=== PATIENT | female | born 1965 | race Two or more races ===

== ENCOUNTER 2022-06-19 18:27 | Inpatient (IN) | payer OTHER ==
[2022-06-19] MEDS ORDERED: ACETAMINOPHEN 1000 MG/100 ML BAG IVPB ONE (19:35)
[2022-06-19] MEDS ORDERED: ONDANSETRON 4 MG/2 ML VIAL IVPUSH ONE (19:37)
[2022-06-19] MEDS ORDERED: ACETAMINOPHEN INJECTION 100 ML IVPB ONE (20:19)
[2022-06-19] MEDS ORDERED: ONDANSETRON 4 MG/2 ML VIAL ONE (20:19)
[2022-06-19 21:49] LABS: EOS % 2.2 % (0-4.5); HEMATOCRIT 32.4 % (32.4-45.2); HEMOGLOBIN 10.9 GM/dL (10.7-15.3); LYMPH % 19.3 % (8-40); MCH 31.6 pg (25.7-33.7); MCHC 33.5 g/dl (32.0-36.0); MEAN CELL VOLUME 94.3 fl (80-96); MEAN PLT VOLUME 8.6 fl (7.5-11.1); MONO % 7.6 % (3.8-10.2); NEUT % 69.9 % (42.8-82.8); PLATELET COUNT 170 10^3/uL (134-434); RBC 3.44 M/mm3 (3.60-5.2); WHITE BLOOD COUNT 9.7 K/mm3 (4.0-10.0)
[2022-06-19 22:07] LABS: CHLORIDE 109 mmol/L (98-107); POTASSIUM 5.2 mmol/L (3.5-5.1); SODIUM 141 mmol/L (136-145)
[2022-06-19 22:09] LABS: GLUCOSE,RANDOM 83 mg/dL (74-106); LIPASE 1058 U/L (73-393)
[2022-06-19 22:10] LABS: ALBUMIN 3.8 g/dl (3.4-5.0); ANION GAP 9 MMOL/L (8-16); BLOOD UREA NITROGEN 64.9 mg/dL (7-18); CO2 22 mmol/L (21-32); MAGNESIUM 2.9 mg/dL (1.8-2.4)
[2022-06-19 22:12] LABS: PHOSPHOROUS 5.3 mg/dL (2.5-4.9); SGOT/AST 10 U/L (15-37)
[2022-06-19 22:13] LABS: SGPT/ALT 18 U/L (13-61)
[2022-06-19 22:14] LABS: BILIRUBIN,TOTAL 0.5 mg/dL (0.2-1); TOT PROT 6.4 g/dl (6.4-8.2)
[2022-06-19 22:15] LABS: ALK PHOS 62 U/L (45-117)
[2022-06-19 22:23] LABS: CREATININE 8.4 mg/dL (0.55-1.3)
[2022-06-19] MEDS ORDERED: ALBUTEROL SO4 2.5/IPRATROPIUM 0.5 INH SOL 3 ML VIAL.NEB. NEB ONE ×2 (23:49→23:59)
[2022-06-19] MEDS: ALBUTEROL SO4 2.5/IPRATROPIUM 0.5 INH SOL 3 ML VIAL.NEB. NEB SCH (23:51)
[2022-06-20] MEDS: ALBUTEROL SO4 2.5/IPRATROPIUM 0.5 INH SOL 3 ML VIAL.NEB. NEB SCH ×3 (01:00→03:36)
[2022-06-20] MEDS ORDERED: ALBUTEROL SO4 HFA INHALER IH PRN (02:38)
[2022-06-20] MEDS ORDERED: SODIUM ZIRCONIUM CYCLOSILICATE (LOKELMA) 10 GM PACKET PO ONE (03:57)
[2022-06-20] MEDS ORDERED: BACLOFEN 10 MG TABLET (FP) ONE (04:00)
[2022-06-20] MEDS ORDERED: SODIUM ZIRCONIUM CYCLOSILICATE (LOKELMA) 5 GM PACKET ONE (04:00)
[2022-06-20] MEDS: BACLOFEN 10 MG TABLET (FP) PO PRN ×2 (04:07→20:49)
[2022-06-20 04:15] LABS: CHLORIDE 111 mmol/L (98-107); POTASSIUM 5.1 mmol/L (3.5-5.1); SODIUM 143 mmol/L (136-145)
[2022-06-20 04:16] LABS: CALCIUM 8.5 mg/dL (8.5-10.1)
[2022-06-20 04:17] LABS: ANION GAP 9 MMOL/L (8-16); CO2 22 mmol/L (21-32); MAGNESIUM 2.9 mg/dL (1.8-2.4)
[2022-06-20 04:18] LABS: ALBUMIN 3.5 g/dl (3.4-5.0); BLOOD UREA NITROGEN 68.4 mg/dL (7-18); GLUCOSE,RANDOM 89 mg/dL (74-106)
[2022-06-20 04:20] LABS: SGOT/AST 9 U/L (15-37); SGPT/ALT 17 U/L (13-61)
[2022-06-20 04:21] LABS: CHOLESTEROL 194 mg/dL (50-200)
[2022-06-20 04:22] LABS: TOT PROT 6.1 g/dl (6.4-8.2)
[2022-06-20 04:23] LABS: BILIRUBIN,TOTAL 0.5 mg/dL (0.2-1); HDL CHOLESTEROL 76 mg/dL (40-60); LDL CHOLESTEROL (ONLY SJRH) 95 mg/dL (5-100)
[2022-06-20 04:24] LABS: ALK PHOS 57 U/L (45-117)
[2022-06-20 05:02] LABS: CREATININE 8.8 mg/dL (0.55-1.3)
[2022-06-20] MEDS: traMADol HCL 50 MG TABLET PO SCH ×2 (05:17→10:01)
[2022-06-20] MEDS ORDERED: LACTATED RINGERS SOLUTION 1000 ML INFUS.BAG IV ONE (06:02)
[2022-06-20] MEDS ORDERED: SODIUM CHLORIDE 0.9% 500 ML INFUS.BAG IV ONE (06:12)
[2022-06-20] MEDS: HEPARIN NA (PORCINE) 5,000 UNITS/ML 1ML VIAL SQ SCH ×3 (06:27→21:37)
[2022-06-20 06:41] LABS: BASO % 0.7 % (0-2.0); HEMATOCRIT 30.8 % (32.4-45.2); HEMOGLOBIN 10.6 GM/dL (10.7-15.3); LYMPH % 17.7 % (8-40); MCH 32.5 pg (25.7-33.7); MCHC 34.3 g/dl (32.0-36.0); MEAN CELL VOLUME 94.6 fl (80-96); MEAN PLT VOLUME 9.2 fl (7.5-11.1); MONO % 8.3 % (3.8-10.2); NEUT % 70.3 % (42.8-82.8); PLATELET COUNT 146 10^3/uL (134-434); RBC 3.26 M/mm3 (3.60-5.2); RDW 17.3 % (11.6-15.6); WHITE BLOOD COUNT 6.6 K/mm3 (4.0-10.0)
[2022-06-20 06:53] LABS: INR 0.99 (0.83-1.09); PROTHROMBIN TIME (PATIENT) 11.5 SEC (9.7-13.0)
[2022-06-20] MEDS ORDERED: SODIUM CHLORIDE 1,000 ML IV SCH (07:15)
[2022-06-20] MEDS ORDERED: PANTOPRAZOLE 40 MG TABLET PO ONE (08:31)
[2022-06-20] MEDS ORDERED: traMADol HCL 50 MG TABLET ONE (08:31)
[2022-06-20] MEDS ORDERED: FERROUS SO4 325 MG TABLET (FP) ONE (08:32)
[2022-06-20] MEDS ORDERED: HEPARIN NA (PORCINE) 5,000 UNITS/ML 1ML VIAL ONE (08:32)
[2022-06-20] MEDS ORDERED: MAGNESIUM OXIDE 400 MG TABLET (FP) ONE (08:32)
[2022-06-20] MEDS: PANTOPRAZOLE 40 MG TABLET PO SCH (09:31)
[2022-06-20] MEDS: SEVELAMER CARBONATE 800 MG TAB (FP) PO SCH ×3 (09:31→17:26)
[2022-06-20] MEDS ORDERED: SODIUM ZIRCONIUM CYCLOSILICATE (LOKELMA) 10 GM PACKET PO SCH (10:00)
[2022-06-20] MEDS ORDERED: SODIUM CHLORIDE 250 ML IV PRN (12:00)
[2022-06-20] MEDS ORDERED: EPOETIN ALFA-EPBX 3,000 UNIT/ML VIAL IVPUSH ONE (12:00)
[2022-06-20 15:10] LABS: LIPASE 792 U/L (73-393)
[2022-06-20 15:11] LABS: AMYLASE 194 U/L (25-115)
[2022-06-20] MEDS: LACTATED RINGERS SOLUTION 1,000 ML/1,000 ML INFUS.BAG IV SCH (17:27)
[2022-06-20] MEDS ORDERED: MECLIZINE HCL 12.5 MG TABLET PO ONE (21:09)
[2022-06-21] MEDS ORDERED: ONDANSETRON 4 MG/2 ML VIAL IVPUSH ONE (01:36)
[2022-06-21] MEDS: HEPARIN NA (PORCINE) 5,000 UNITS/ML 1ML VIAL SQ SCH ×3 (06:52→21:43)
[2022-06-21] MEDS ORDERED: ONDANSETRON 4 MG/2 ML VIAL IVPB PRN (07:11)
[2022-06-21 08:17] LABS: BASO % 0.8 % (0-2.0); EOS % 1.1 % (0-4.5); HEMOGLOBIN 10.1 GM/dL (10.7-15.3); MCHC 33.6 g/dl (32.0-36.0); MEAN CELL VOLUME 95.3 fl (80-96); MEAN PLT VOLUME 9.4 fl (7.5-11.1); MONO % 7.5 % (3.8-10.2); NEUT % 75.6 % (42.8-82.8); PLATELET COUNT 124 10^3/uL (134-434); RBC 3.15 M/mm3 (3.60-5.2); WHITE BLOOD COUNT 5.6 K/mm3 (4.0-10.0)
[2022-06-21] MEDS: SEVELAMER CARBONATE 800 MG TAB (FP) PO SCH ×3 (08:24→18:13)
[2022-06-21 08:56] LABS: POTASSIUM 4.3 mmol/L (3.5-5.1)
[2022-06-21 09:00] LABS: ALBUMIN 3.4 g/dl (3.4-5.0)
[2022-06-21 09:02] LABS: CREATININE 5.2 mg/dL (0.55-1.3)
[2022-06-21 09:04] LABS: BILIRUBIN,TOTAL 0.8 mg/dL (0.2-1)
[2022-06-21] MEDS: traMADol HCL 50 MG TABLET PO SCH (09:05)
[2022-06-21] MEDS: PANTOPRAZOLE 40 MG TABLET PO SCH (09:07)
[2022-06-21 09:10] LABS: BLOOD UREA NITROGEN 27.1 mg/dL (7-18)
[2022-06-21] MEDS ORDERED: LACTATED RINGERS SOLUTION 1,000 ML/1,000 ML INFUS.BAG IV SCH (18:11)
[2022-06-21] MEDS: LACTATED RINGERS SOLUTION 1,000 ML/1,000 ML INFUS.BAG IV SCH (18:12)
[2022-06-21] MEDS: BACLOFEN 10 MG TABLET (FP) PO PRN (23:54)
[2022-06-22] MEDS ORDERED: ACETAMINOPHEN 1000 MG/100 ML BAG IVPB ONE (02:10)
[2022-06-22] MEDS ORDERED: PREGABALIN 25 MG CAPSULE PO ONE (03:23)
[2022-06-22] MEDS: HEPARIN NA (PORCINE) 5,000 UNITS/ML 1ML VIAL SQ SCH ×3 (05:55→21:56)
[2022-06-22] MEDS ORDERED: SODIUM CHLORIDE 250 ML IV PRN (07:12)
[2022-06-22] MEDS: SEVELAMER CARBONATE 800 MG TAB (FP) PO SCH ×3 (09:24→17:24)
[2022-06-22] MEDS: PANTOPRAZOLE 40 MG TABLET PO SCH (09:24)
[2022-06-22] MEDS: traMADol HCL 50 MG TABLET PO SCH (09:25)
[2022-06-22] MEDS ORDERED: EPOETIN ALFA-EPBX 4,000 UNIT/ML VIAL SQ ONE (09:30)
[2022-06-22] MEDS: ALBUTEROL SO4 HFA INHALER IH PRN (09:35)
[2022-06-22 10:09] LABS: CALCIUM 9.1 mg/dL (8.5-10.1)
[2022-06-22 10:10] LABS: ALBUMIN 3.7 g/dl (3.4-5.0); BLOOD UREA NITROGEN 31.5 mg/dL (7-18); MAGNESIUM 2.4 mg/dL (1.8-2.4)
[2022-06-22 10:13] LABS: CREATININE 6.4 mg/dL (0.55-1.3); PHOSPHOROUS 4.5 mg/dL (2.5-4.9)
[2022-06-22 10:14] LABS: TOT PROT 6.4 g/dl (6.4-8.2)
[2022-06-22 10:15] LABS: BILIRUBIN,TOTAL 0.6 mg/dL (0.2-1)
[2022-06-22 10:56] LABS: BASO % 0.9 % (0-2.0); EOS % 1.5 % (0-4.5); HEMATOCRIT 31.2 % (32.4-45.2); HEMOGLOBIN 10.6 GM/dL (10.7-15.3); LYMPH % 17.2 % (8-40); MCH 32.2 pg (25.7-33.7); MCHC 33.9 g/dl (32.0-36.0); MEAN CELL VOLUME 94.9 fl (80-96); MEAN PLT VOLUME 9.1 fl (7.5-11.1); MONO % 7.5 % (3.8-10.2); NEUT % 72.9 % (42.8-82.8); PLATELET COUNT 139 10^3/uL (134-434); RBC 3.29 M/mm3 (3.60-5.2); RDW 16.4 % (11.6-15.6); WHITE BLOOD COUNT 5.5 K/mm3 (4.0-10.0)
[2022-06-22] MEDS: LACTATED RINGERS SOLUTION 1,000 ML/1,000 ML INFUS.BAG IV SCH (17:55)
[2022-06-22] MEDS: ONDANSETRON 4 MG/2 ML VIAL IVPB PRN (18:02)
[2022-06-22] MEDS: ACETAMINOPHEN 1000 MG/100 ML BAG IVPB PRN (23:50)
[2022-06-22] MEDS: MELATONIN 5 MG TABLETS PO PRN (23:53)
[2022-06-23] MEDS: LACTATED RINGERS SOLUTION 1,000 ML/1,000 ML INFUS.BAG IV SCH (05:45)
[2022-06-23] MEDS: HEPARIN NA (PORCINE) 5,000 UNITS/ML 1ML VIAL SQ SCH ×3 (05:45→22:45)
[2022-06-23] MEDS: SEVELAMER CARBONATE 800 MG TAB (FP) PO SCH ×3 (08:37→17:26)
[2022-06-23] MEDS: ACETAMINOPHEN 1000 MG/100 ML BAG IVPB PRN (08:37)
[2022-06-23] MEDS: PANTOPRAZOLE 40 MG TABLET PO SCH (09:53)
[2022-06-23] MEDS: traMADol HCL 50 MG TABLET PO SCH (09:53)
[2022-06-23] MEDS ORDERED: LACTATED RINGERS SOLUTION 1,000 ML/1,000 ML INFUS.BAG IV SCH (13:40)
[2022-06-24] MEDS: HEPARIN NA (PORCINE) 5,000 UNITS/ML 1ML VIAL SQ SCH ×3 (06:12→22:05)
[2022-06-24] MEDS: SEVELAMER CARBONATE 800 MG TAB (FP) PO SCH ×3 (09:57→17:55)
[2022-06-24] MEDS: traMADol HCL 50 MG TABLET PO SCH (09:57)
[2022-06-24] MEDS: PANTOPRAZOLE 40 MG TABLET PO SCH (09:57)
[2022-06-24 11:15] LABS: BASO % 1.4 % (0-2.0); EOS % 3.3 % (0-4.5); HEMATOCRIT 32.1 % (32.4-45.2); HEMOGLOBIN 10.7 GM/dL (10.7-15.3); LYMPH % 14.9 % (8-40); MCH 31.9 pg (25.7-33.7); MCHC 33.5 g/dl (32.0-36.0); MEAN CELL VOLUME 95.4 fl (80-96); MONO % 6.8 % (3.8-10.2); NEUT % 73.6 % (42.8-82.8); PLATELET COUNT 128 10^3/uL (134-434); RBC 3.36 M/mm3 (3.60-5.2); RDW 16.5 % (11.6-15.6); WHITE BLOOD COUNT 4.8 K/mm3 (4.0-10.0)
[2022-06-24 11:41] LABS: POTASSIUM 4.4 mmol/L (3.5-5.1)
[2022-06-24 11:47] LABS: ALBUMIN 3.4 g/dl (3.4-5.0); CALCIUM 9.3 mg/dL (8.5-10.1)
[2022-06-24 11:48] LABS: BLOOD UREA NITROGEN 19.1 mg/dL (7-18)
[2022-06-24 11:50] LABS: CREATININE 5.6 mg/dL (0.55-1.3); PHOSPHOROUS 3.6 mg/dL (2.5-4.9)
[2022-06-24 11:52] LABS: BILIRUBIN,TOTAL 0.5 mg/dL (0.2-1)
[2022-06-24] MEDS: ALBUTEROL SO4 HFA INHALER IH PRN (22:00)
[2022-06-24] MEDS: MELATONIN 5 MG TABLETS PO PRN (22:05)
[2022-06-24] MEDS: ONDANSETRON 4 MG/2 ML VIAL IVPB PRN (22:05)
[2022-06-25] MEDS ORDERED: ONDANSETRON *ODT* 4 MG TABLET SL ONE (03:56)
[2022-06-25] MEDS ORDERED: ONDANSETRON *ODT* 4 MG TABLET SL PRN (04:01)
[2022-06-25] MEDS: HEPARIN NA (PORCINE) 5,000 UNITS/ML 1ML VIAL SQ SCH ×3 (06:42→22:15)
[2022-06-25] MEDS ORDERED: SODIUM CHLORIDE 250 ML IV PRN (08:20)
[2022-06-25] MEDS ORDERED: EPOETIN ALFA-EPBX 4,000 UNIT/ML VIAL SQ ONE (08:20)
[2022-06-25] MEDS: SEVELAMER CARBONATE 800 MG TAB (FP) PO SCH ×3 (08:24→17:26)
[2022-06-25 09:27] LABS: BASO % 1.1 % (0-2.0); EOS % 5.8 % (0-4.5); HEMATOCRIT 28.9 % (32.4-45.2); HEMOGLOBIN 9.8 GM/dL (10.7-15.3); LYMPH % 20.5 % (8-40); MCHC 33.9 g/dl (32.0-36.0); MEAN CELL VOLUME 94.6 fl (80-96); MEAN PLT VOLUME 8.7 fl (7.5-11.1); MONO % 7.9 % (3.8-10.2); NEUT % 64.7 % (42.8-82.8); PLATELET COUNT 118 10^3/uL (134-434); RBC 3.05 M/mm3 (3.60-5.2); WHITE BLOOD COUNT 4.2 K/mm3 (4.0-10.0)
[2022-06-25 11:24] LABS: POTASSIUM 4.5 mmol/L (3.5-5.1)
[2022-06-25 11:48] LABS: ALBUMIN 3.1 g/dl (3.4-5.0); CALCIUM 8.8 mg/dL (8.5-10.1)
[2022-06-25 11:52] LABS: PHOSPHOROUS 3.7 mg/dL (2.5-4.9)
[2022-06-25 11:53] LABS: BILIRUBIN,TOTAL 0.4 mg/dL (0.2-1); TOT PROT 5.4 g/dl (6.4-8.2)
[2022-06-25] MEDS: traMADol HCL 50 MG TABLET PO SCH (13:01)
[2022-06-25] MEDS: PANTOPRAZOLE 40 MG TABLET PO SCH (13:01)
[2022-06-25 15:27] VITALS: BMI 21.7
[2022-06-25] MEDS ORDERED: ACETAMINOPHEN 325 MG TABLET (FP) PO ONE (18:51)
[2022-06-26] MEDS: PANTOPRAZOLE 40 MG TABLET PO SCH (09:31)
[2022-06-26] MEDS: traMADol HCL 50 MG TABLET PO SCH (09:31)
[2022-06-26] MEDS: SEVELAMER CARBONATE 800 MG TAB (FP) PO SCH ×3 (09:34→17:31)
[2022-06-26 10:44] LABS: BASO % 1.1 % (0-2.0); EOS % 3.6 % (0-4.5); HEMATOCRIT 34.6 % (32.4-45.2); HEMOGLOBIN 11.4 GM/dL (10.7-15.3); LYMPH % 19.8 % (8-40); MCH 31.6 pg (25.7-33.7); MEAN CELL VOLUME 95.7 fl (80-96); MEAN PLT VOLUME 8.3 fl (7.5-11.1); MONO % 8.7 % (3.8-10.2); NEUT % 66.8 % (42.8-82.8); PLATELET COUNT 137 10^3/uL (134-434); RBC 3.62 M/mm3 (3.60-5.2); RDW 16.2 % (11.6-15.6); WHITE BLOOD COUNT 4.6 K/mm3 (4.0-10.0)
[2022-06-26 10:49] LABS: PROTHROMBIN TIME (PATIENT) 11.6 SEC (9.7-13.0)
[2022-06-26 11:06] LABS: POTASSIUM 4.3 mmol/L (3.5-5.1)
[2022-06-26 11:11] LABS: BLOOD UREA NITROGEN 14.4 mg/dL (7-18); CALCIUM 9.6 mg/dL (8.5-10.1)
[2022-06-26 11:13] LABS: ALBUMIN 3.5 g/dl (3.4-5.0)
[2022-06-26 11:16] LABS: BILIRUBIN,TOTAL 0.6 mg/dL (0.2-1); CREATININE 4.9 mg/dL (0.55-1.3); TOT PROT 6.5 g/dl (6.4-8.2)
[2022-06-26] MEDS: BACLOFEN 10 MG TABLET (FP) PO PRN (22:35)
[2022-06-27] MEDS: SEVELAMER CARBONATE 800 MG TAB (FP) PO SCH ×2 (08:01→13:17)
[2022-06-27] MEDS: traMADol HCL 50 MG TABLET PO SCH (09:54)
[2022-06-27] MEDS: PANTOPRAZOLE 40 MG TABLET PO SCH (09:54)
[2022-06-27] MEDS ORDERED: SODIUM CHLORIDE 250 ML IV PRN (10:14)
[2022-06-27] MEDS ORDERED: EPOETIN ALFA-EPBX 4,000 UNIT/ML VIAL IVPUSH ONE (10:15)
[2022-06-27] MEDS ORDERED: EPOETIN ALFA-EPBX 4,000 UNIT/ML VIAL SQ ONE (10:15)
[2022-06-27 15:39] VITALS: BP 132/67; PULSE 87; RESP 16; TEMP 99.5
== END 2022-06-27 16:17 | disposition home or self-care (01) | DRG 438 ==
LOC: JER 18:27 → JERBED 23:04 → J4W 06-20 16:42 → J5S 06-21 17:48
PROVIDERS: ADMIT Student in an Organized Health Care Education/Training Program
PROC: 0DB98ZX Excision of Duodenum, Via Natural or Artificial Opening Endoscopic, Diagnostic (ICD-10-PCS; 2022-06-26)
PROC: 0DB68ZX Excision of Stomach, Via Natural or Artificial Opening Endoscopic, Diagnostic (ICD-10-PCS; principal; 2022-06-26 11:45)
PROC: 5A1D70Z Performance of Urinary Filtration, Intermittent, Less than 6 Hours Per Day (ICD-10-PCS; 2022-06-27)
DX: K85.10 Biliary acute pancreatitis without necrosis or infection (principal); N18.6 End stage renal disease; R11.2 Nausea with vomiting, unspecified; R10.9 Unspecified abdominal pain; J45.909 Unspecified asthma, uncomplicated; Z99.2 Dependence on renal dialysis; K29.70 Gastritis, unspecified, without bleeding
CPT/HCPCS: 0241U-QW; 36415; 74176-TC; 74178-TC; 74181-TC; 76705-TC; 80053; 80061; 82150; 82728; 82787; 83036; 83540; 83550; 83605; 83690; 83735; 84100; 85025; 85610; 85730; 86140; 86803; 87045; 87046; 87205; 87324; 87340; 87449; 88305-TC; 93005; 93010; 93306-TC; 93970-TC; 93990-TC; 99285-25; J0475; J1644; Q5106; Q9967

== ENCOUNTER 2022-06-30 03:01 | Emergency (ER) | payer OTHER ==
[2022-06-30 03:13] VITALS: TEMP 97.8; BMI 20.5
[2022-06-30 03:26] VITALS: RESP 10
[2022-06-30 04:08] LABS: BASO % 0.9 % (0-2.0); EOS % 3.3 % (0-4.5); HEMATOCRIT 31.9 % (32.4-45.2); LYMPH % 17.5 % (8-40); MCH 32.7 pg (25.7-33.7); MCHC 34.4 g/dl (32.0-36.0); MEAN CELL VOLUME 95.1 fl (80-96); MEAN PLT VOLUME 9.2 fl (7.5-11.1); MONO % 8.5 % (3.8-10.2); NEUT % 69.8 % (42.8-82.8); PLATELET COUNT 122 10^3/uL (134-434); RBC 3.36 M/mm3 (3.60-5.2); RDW 16.2 % (11.6-15.6); WHITE BLOOD COUNT 5.1 K/mm3 (4.0-10.0)
[2022-06-30 04:25] LABS: CHLORIDE 103 mmol/L (98-107); SODIUM 141 mmol/L (136-145)
[2022-06-30 04:27] LABS: ALBUMIN 3.7 g/dl (3.4-5.0); ANION GAP 9 MMOL/L (8-16); CALCIUM 9.5 mg/dL (8.5-10.1); CO2 29 mmol/L (21-32); GLUCOSE,RANDOM 112 mg/dL (74-106); LIPASE 298 U/L (73-393); MAGNESIUM 2.7 mg/dL (1.8-2.4)
[2022-06-30 04:28] LABS: BLOOD UREA NITROGEN 33.4 mg/dL (7-18)
[2022-06-30 04:30] LABS: SGOT/AST 30 U/L (15-37); SGPT/ALT 54 U/L (13-61)
[2022-06-30 04:32] LABS: BILIRUBIN,TOTAL 0.5 mg/dL (0.2-1); TOT PROT 6.5 g/dl (6.4-8.2)
[2022-06-30 04:33] LABS: ALK PHOS 68 U/L (45-117)
[2022-06-30 04:34] LABS: CREATININE 8.2 mg/dL (0.55-1.3)
[2022-06-30 04:44] VITALS: BP 124/52; PULSE 64
[2022-06-30] MEDS ORDERED: ACETAMINOPHEN 325 MG TABLET (FP) PO ONE (06:03)
== END 2022-06-30 08:27 | disposition home or self-care (01) ==
LOC: JER 03:01
DX: R11.10 Vomiting, unspecified (principal); M79.606 Pain in leg, unspecified
CPT/HCPCS: 36415; 80053; 83690; 83735; 85025; 93005; 93010; 99284-25

== ENCOUNTER 2022-07-17 14:59 | Observation (INO) | payer OTHER ==
[2022-07-17 15:17] VITALS: BMI 20.1
[2022-07-17 16:06] LABS: BASO % 1.4 % (0-2.0); EOS % 4.3 % (0-4.5); HEMATOCRIT 34.4 % (32.4-45.2); HEMOGLOBIN 11.6 GM/dL (10.7-15.3); LYMPH % 21.3 % (8-40); MCHC 33.7 g/dl (32.0-36.0); MEAN CELL VOLUME 95.1 fl (80-96); MONO % 7.4 % (3.8-10.2); NEUT % 65.6 % (42.8-82.8); RBC 3.62 M/mm3 (3.60-5.2); RDW 15.5 % (11.6-15.6); WHITE BLOOD COUNT 6.6 K/mm3 (4.0-10.0)
[2022-07-17 16:23] LABS: MEAN PLT VOLUME 9.2 fl (7.5-11.1); PLATELET COUNT 157 10^3/uL (134-434)
[2022-07-17 16:31] LABS: CHLORIDE 106 mmol/L (98-107); SODIUM 139 mmol/L (136-145)
[2022-07-17 16:32] LABS: ALBUMIN 3.8 g/dl (3.4-5.0); ANION GAP 8 MMOL/L (8-16); CALCIUM 9.8 mg/dL (8.5-10.1); CO2 25 mmol/L (21-32)
[2022-07-17 16:33] LABS: GLUCOSE,RANDOM 84 mg/dL (74-106)
[2022-07-17 16:36] LABS: SGOT/AST 10 U/L (15-37); SGPT/ALT 17 U/L (13-61)
[2022-07-17 16:38] LABS: ALK PHOS 76 U/L (45-117); BILIRUBIN,TOTAL 0.4 mg/dL (0.2-1); TOT PROT 6.5 g/dl (6.4-8.2)
[2022-07-17 16:42] LABS: BLOOD UREA NITROGEN 60.2 mg/dL (7-18)
[2022-07-17 17:08] VITALS: RESP 18
[2022-07-17] MEDS ORDERED: ALBUTEROL SO4 HFA INHALER IH PRN (17:45)
[2022-07-17] MEDS ORDERED: BACLOFEN 10 MG TABLET (FP) PO PRN (17:45)
[2022-07-17] MEDS ORDERED: SODIUM CHLORIDE 250 ML IV PRN (18:20)
[2022-07-17] MEDS: HEPARIN NA (PORCINE) 5,000 UNITS/ML 1ML VIAL SQ SCH (21:44)
[2022-07-18] MEDS: HEPARIN NA (PORCINE) 5,000 UNITS/ML 1ML VIAL SQ SCH ×2 (05:23→14:46)
[2022-07-18 06:33] VITALS: BP 138/58; PULSE 81; TEMP 98.5
[2022-07-18 09:11] LABS: BASO % 0.9 % (0-2.0); EOS % 2.1 % (0-4.5); HEMATOCRIT 34.8 % (32.4-45.2); HEMOGLOBIN 11.9 GM/dL (10.7-15.3); LYMPH % 20.3 % (8-40); MCHC 34.2 g/dl (32.0-36.0); MEAN CELL VOLUME 93.7 fl (80-96); MEAN PLT VOLUME 9.3 fl (7.5-11.1); MONO % 7.1 % (3.8-10.2); NEUT % 69.6 % (42.8-82.8); PLATELET COUNT 149 10^3/uL (134-434); RBC 3.71 M/mm3 (3.60-5.2); RDW 15.2 % (11.6-15.6); WHITE BLOOD COUNT 4.8 K/mm3 (4.0-10.0)
[2022-07-18 09:34] LABS: POTASSIUM 4.5 mmol/L (3.5-5.1)
[2022-07-18 09:38] LABS: ALBUMIN 3.6 g/dl (3.4-5.0); CALCIUM 8.7 mg/dL (8.5-10.1)
[2022-07-18 09:39] LABS: MAGNESIUM 2.3 mg/dL (1.8-2.4)
[2022-07-18 09:41] LABS: BILIRUBIN,TOTAL 0.5 mg/dL (0.2-1); CREATININE 4.9 mg/dL (0.55-1.3); PHOSPHOROUS 2.9 mg/dL (2.5-4.9); TOT PROT 6.3 g/dl (6.4-8.2)
[2022-07-18 09:45] LABS: BLOOD UREA NITROGEN 18.1 mg/dL (7-18)
[2022-07-18] MEDS ORDERED: PANTOPRAZOLE 40 MG TABLET PO SCH (10:00)
[2022-07-18] MEDS: SEVELAMER CARBONATE 800 MG TAB (FP) PO SCH ×2 (10:47→14:46)
== END 2022-07-18 15:33 | disposition home or self-care (01) ==
LOC: JER 14:59 → JERBED 16:24 → J5S 21:05
PROVIDERS: ADMIT Internal Medicine; ATTEND Internal Medicine
DX: Z91.158 Patient's noncompliance with renal dialysis for other reason (principal); J45.909 Unspecified asthma, uncomplicated; N18.6 End stage renal disease; Z99.2 Dependence on renal dialysis
CPT/HCPCS: 0241U-QW; 36415; 80053; 83735; 84100; 85025; 93005; 93010; 99285-25; G0378